=== PATIENT | female | born 1990 | race Caucasian/White ===

== ENCOUNTER → 2018-02-01 | Outpatient (CLI) | payer BC | LOC: COL.LAB 09:20 | DX: N97.0 Female infertility associated with anovulation (principal) ==

== ENCOUNTER → 2018-10-01 | Outpatient (CLI) | payer OTHER | LOC: COL.RAD 12:39 | DX: R31.0 Gross hematuria (principal) ==

== ENCOUNTER 2018-12-03 09:53 | Inpatient (IN) | payer OTHER ==
[2018-12-03] VITALS (18 sets, daily range): BP systolic 134–161; BP diastolic 86–107; PULSE 79–98; TEMP 97.6–97.9
[~2018-12-03] VITALS: Ht 162.6 cm; Wt 70.9 kg
--- NOTE | 2018-12-03 10:00 | NUR ---
Pt arrives on unit ambulatory with spouse for primary . Changed into clean gown. Denies regular ctx, vaginal bleeding, and LOF. Reports GFM. EFM and toco applied. BP elevated. Dr. Harmon notified. Orders for CMP. Notified of results. No new orders. IV started in LH. Labs drawn. LR infusing. Admission assessment completed. Consents signed. Skin prep performed. Pt updated on POC. Safety reviewed. No questions or concerns at this time. Bed locked in low position. Call light within reach.
[2018-12-03] MEDS ORDERED: PRENATAL MVI (10:14)
[2018-12-03] MEDS ORDERED: ASPIRIN 81M81 MG/TA2 PO (10:15)
[2018-12-03] MEDS ORDERED: VENTOLIN0.09 MG IH (10:15)
[2018-12-03] MEDS ORDERED: PROCARDIA XL 6060 MG PO (10:15)
[2018-12-03] MEDS ORDERED: FOLIC ACID 11 MG/TA1 PO (10:16)
[2018-12-03 10:48] LABS: BASO % 0.3 % (0.0-2.0); EOS # 0.2 (0.0-0.7); EOS % 1.9 % (0-4.0); GRAN # 8.4 (1.4-6.5); GRAN % 71.2 % (42.2-75.2); HEMATOCRIT 38.1 % (37.0-47.0); HEMOGLOBIN 13.6 g/dl (12.5-16.0); LYMPH # 2.2 (1.2-3.4); LYMPH % 18.8 % (20.0-51.0); MEAN CELL VOLUME 85 fl (80.0-100.0); MEAN CORPUSCULAR HEMOGLOBIN 30 pg (27.0-31.0); MEAN CORPUSCULAR HGB CONC 36 g/dl (33.0-37.0); MEAN PLATELET VOLUME 11.9 fl (7.4-10.4); MONO # 0.9 (0.1-0.6); MONO % 7.3 % (1.7-9.3); PLATELET COUNT 249 K/mm3 (130-400); RED BLOOD COUNT 4.49 M/mm3 (4.10-5.30); REDCELL DISTRIBUTION WIDTH-CV 12.9 % (11.5-14.5)
[2018-12-03 11:01] LABS: ALBUMIN 3.5 gm/dL (3.5-5.0); BILIRUBIN,TOTAL 0.3 mg/dL (0.0-1.0); CALCIUM 8.5 mg/dL (8.4-10.2); CREATININE, serum 0.61 (0.52-1.25); POTASSIUM 3.7 mmol/L (3.4-5.0); TOTAL PROTEIN 6.5 gm/dL (6.4-8.2)
[2018-12-04 04:30] VITALS: BP 131/91; PULSE 90; TEMP 97.8
[2018-12-04 07:06] VITALS: BP 144/89; PULSE 76; TEMP 98.1
--- NOTE | 2018-12-04 11:45 | NUR ---
Initial visit; Parents resting, Shut Off Worker left card of congratulations for the of their son and information regarding the availability of spiritual care at [place].
[2018-12-04 15:36] VITALS: BP 136/89; PULSE 78; TEMP 98.1
[2018-12-04 19:33] VITALS: BP 149/101; PULSE 97; TEMP 97.7
[2018-12-04 21:30] VITALS: BP 135/92
[2018-12-05 07:45] VITALS: BP 144/82; PULSE 95; TEMP 97.7
[2018-12-05] MEDS ORDERED: MOTRIN 800800 MG/TAB PO (08:51)
[2018-12-05] MEDS ORDERED: PERCOCET 325 MG1 TA2 PO (08:51)
[2018-12-05 15:42] VITALS: BP 144/83; PULSE 86; TEMP 97.6
[2018-12-05 21:00] VITALS: BP 129/87; PULSE 66; TEMP 98.8
[2018-12-06 09:06] VITALS: BP 142/96; PULSE 92; TEMP 97.7
[2018-12-06 12:25] VITALS: BP 146/96; PULSE 96
[2018-12-06 16:15] VITALS: BP 139/89; PULSE 100; TEMP 98.4
[2018-12-06 20:30] VITALS: BP 141/98; PULSE 107; TEMP 98.2
[2018-12-07] MEDS ORDERED: TRANDATE 100MG100 MG PO (08:53)
[2018-12-07 08:55] VITALS: BP 133/86; PULSE 98; TEMP 98.4
== END 2018-12-07 13:00 | disposition home or self-care (01) | DRG 787 ==
LOC: OB 09:53
PROVIDERS: ADMIT Obstetrics & Gynecology
PROC: 10D00Z1 Extraction of Products of Conception, Low, Open Approach (ICD-10-PCS; principal; 2018-12-03)
DX: O32.1XX0 Maternal care for breech presentation, not applicable or unspecified (principal); E72.12 Methylenetetrahydrofolate reductase deficiency; O36.5930 Maternal care for other known or suspected poor fetal growth, third trimester, not applicable or unspecified; O99.52 Diseases of the respiratory system complicating childbirth; O13.4 Gestational [pregnancy-induced] hypertension without significant proteinuria, complicating childbirth; J45.909 Unspecified asthma, uncomplicated; O99.284 Endocrine, nutritional and metabolic diseases complicating childbirth; O34.03 Maternal care for unspecified congenital malformation of uterus, third trimester; O75.89 Other specified complications of labor and delivery; R12 Heartburn; Z3A.37 37 weeks gestation of pregnancy; Z37.0 Single live birth; Q51.3 Bicornate uterus
CPT/HCPCS: J0171; J0690; J1885; J2370; J2405; J2590; J3010; J7120

== ENCOUNTER 2023-09-11 10:00 | Inpatient (IN) | payer OTHER ==
[~2023-09-11] VITALS: Ht 162.7 cm; Wt 78.2 kg
[2023-09-11] VITALS (21 sets, daily range): BP systolic 135–173; BP diastolic 89–123; PULSE 70–99; TEMP 97.7–98.2
[~2023-09-11 10:00] MED LIST: ASPIRIN 81M81 MG/TA2 PO; FOLIC ACID 11 MG/TA1 PO; LR 1,000 ML IV SCH; MOTRIN 800800 MG/TAB PO; Ondansetron 4 MG/2 ML VIAL IV SCH; PERCOCET 325 MG1 TA2 PO; PRENATAL MVI; PROCARDIA XL 6060 MG PO; TRANDATE 100MG100 MG PO; VENTOLIN0.09 MG IH
--- NOTE | 2023-09-11 10:15 | NUR ---
PATIENT ON UNIT AND AMBULATING TO ROOM. PATIENT DENIES CTX. PATIENT DENIES LEAKING OF FLUID OR BLEEDING. PATIENT REPORTS NORMAL MOVEMENT. EFM AND TOCO INTIATIED. SPO2 INITIATIED.
[2023-09-11] MEDS ORDERED: LR 1,000 ML IV SCH (11:00)
[2023-09-11] MEDS ORDERED: NS 10 ML IV ONE (11:09)
[2023-09-11] MEDS ORDERED: Ondansetron 4 MG/2 ML VIAL ONE (11:09)
[2023-09-11] MEDS ORDERED: dexAMETHasone 10 MG/ML VIAL ONE (11:09)
[2023-09-11] MEDS ORDERED: Oxytocin 10 UNITS/ML VIAL ONE (11:09)
[2023-09-11] MEDS ORDERED: Ketorolac 30 MG/ML VIAL ONE (11:09)
[2023-09-11 11:16] LABS: BASO % 0.2 % (0.0-2.0); EOS # 0.1 K/mm3 (0.0-0.7); EOS % 1.1 % (0.0-4.0); GRAN # 7.8 K/mm3 (1.4-6.5); GRAN % 78.4 % (42.2-75.2); HEMATOCRIT 39.1 % (37.0-47.0); HEMOGLOBIN 13.4 g/dl (12.5-16.0); LYMPH # 1.3 K/mm3 (1.2-3.4); LYMPH % 12.7 % (20.0-51.0); MEAN CELL VOLUME 82 fl (80.0-100.0); MEAN CORPUSCULAR HEMOGLOBIN 28 pg (27-31); MEAN CORPUSCULAR HGB CONC 34 g/dl (33.0-37.0); MEAN PLATELET VOLUME 12.6 fl (7.4-10.4); MONO # 0.7 K/mm3 (0.1-0.6); MONO % 7.2 % (1.7-9.3); PLATELET COUNT 200 K/mm3 (130-400); RED BLOOD COUNT 4.79 M/mm3 (4.10-5.30); REDCELL DISTRIBUTION WIDTH-CV 15.1 % (11.5-14.5)
[2023-09-11] MEDS ORDERED: NORMODYNE200 MG PO (11:17)
[2023-09-11] MEDS ORDERED: NATURAL IRON65 MG (11:18)
--- NOTE | 2023-09-11 11:35 | NUR ---
PATIENT AMBULATING BACK TO SECTION SUITE.
[2023-09-11] MEDS ORDERED: LR 1,000 ML IV ONE ×2 (12:08→12:23)
--- NOTE | 2023-09-11 12:39 | NUR ---
PROVIDER NOTIFIED OF MATERNAL BLOOD PRESSURE ELEVATION. PROVIDER WISHED TO CONTINUE WITH CURRENTLY PRESCRIBED LABATELOL 200 MG BID AND STATES THAT PATIENT CAN TAKE OWN MEDICATIONS SHE BROUGHT WITH HER FROM HOME.
--- NOTE | 2023-09-11 12:39 | NUR ---
MATERNAL BLOOD PRESSURE ELEVATED. ANESTHESIA WELL NOTIFIED. ORDERS GIVEN BY TO CONTINUE CURRENT THERAPY WHICH IS LABATELOL 200MG BID. ORDERS GIVEN TO ALLOW PATIENT TO TAKE LABETALOL BROUGHT FROM HOME. PATIENT IS NONSYMPTOMATIC AT THIS TIME.
[2023-09-11] MEDS ORDERED: Magnes Hydrox (MOM) 80 MG/ML 30 ML CUP PO PRN (12:45)
[2023-09-11] MEDS ORDERED: Loratadine 10 MG TAB PO PRN (12:45)
--- NOTE | 2023-09-11 12:45 | NUR ---
MATERNAL BLOOD PRESSURE ELEVATED. ANESTHESIA WELL NOTIFIED. HTN WAS A COMPLICATION AND PATIENT WAS ALREADY TAKING LABATELOL. WISHES TO CONTINUE WITH CURRENT LABETALOL THERAPY WHICH IS LABATELOL 200MG BID. PATIENT IS NO SYMPTOMATIC AT THIS TIME AND IS IN AGREEANCCE WITH PLAN OF CARE
[2023-09-11] MEDS ORDERED: Measles/Mumps/Rubella Virus Vaccine Live w Diluent 0.5 ML VIAL SQ SCH (14:15)
[2023-09-11] MEDS ORDERED: Naloxone 0.4 MG/ML VIAL IV PRN (14:15)
[2023-09-11] MEDS ORDERED: Ondansetron 4 MG/2 ML VIAL IV PRN (14:15)
[2023-09-11] MEDS ORDERED: Morphine 4 MG/ML VIAL IV PRN (14:15)
[2023-09-11] MEDS ORDERED: LR 1,000 ML IV PRN (14:15)
[2023-09-11] MEDS ORDERED: oxyCODONE/Acetaminophen 5-325 MG TAB PO PRN (14:15)
[2023-09-11] MEDS ORDERED: Sennosides/Docusate 8.6-50 MG TAB PO SCH (17:00)
--- NOTE | 2023-09-11 17:00 | NUR ---
NOTIFIED OF MATERNAL BLOOD PRESSURE ELEVATION THROUGHOUT RECOVERY. PROVIDER NOTIFIED THAT PATIENT HAS BEEN NONSYMPTOMATIC AND BLOOD PRESSURES HAD IMPROVED SLIGHTLY AT THE END OF RECOVERY. BLODD PRESSURES PRE-OP, IN PACU AND IN RECOVERY REVIEWED WITH PROVIDER. PROVIDER NOTIFIED THAT HAD GIVEN ORDERS TO CONTINUE LABETALOL 200 MG BID IN PACU. PROVIDER NOTIFIED THAT HTN WAS A COMPLICATION. ORDERS GIVEN FOR TO INCREASE LABATELOL TO 200 MG THREE TIMES DAILY. PROVIDER IS OKAY WITH 'S PREVIOUS ORDER TO ALLOW PATIENT TO USE LABATELOL BROUGHT FROM HOME.
[2023-09-11] MEDS ORDERED: Ibuprofen 800 MG TAB PO SCH (18:31)
--- NOTE | 2023-09-11 20:10 | NUR ---
THIS RN TO PATIENT'S ROOM AT 1900 FOR VITALS, ASSESSMENT, AND POC UPDATE. DISCUSSED AND EDUCATED PATIENT ON THE ORDERED LABETOLOL INCREASE TO TID. PATIENT REPORTS SHE DID NOT TAKE HER SECOND DOSE OF LABETOLOL THIS AFTERNOON AND HAD NOT YET TAKEN HER EVENING DOSE. THIS RN EDUCATED PATIENT ON IMPORTANCE OF TAKING PRESCRIBED DOSING AND HAD PATIENT TAKE HER EVENING DOSE OF LABETOLOL AT 1900. BP AT 1900 WAS 173/96. PATIENT WAS SUPINE IN BED AT THIS TIME. BP WAS RE-TAKEN AT 1999 1 HOUR AFTER LABETOLOL ADMINISTRATION. BP AT THIS TIME WAS 158/93. PATIENT SUPINE IN BED AT THIS TIME. PATIENT ASYMPTOMATIC TO ELEVATED BP. DR. DURBIN NOTIFIED AT 2009. REPORTED TO THE PROVIDER THAT THE PATIENT NEVER TOOK THE AFTERNOON 2ND DOSE OF LABETOLOL ORDERED. DISCUSSED THAT PATIENT TOOK THE EVENING DOSE AT 1900. REPORTED PATIENT'S BP AT [address] DURBIN GAVE THE FOLLOWING ORDERS: 1. ADMINISTER THE 3RD DOSE OF LABETOLOL 200 MG PO ONCE NOW. [address] PL[address] AND ORDER FOR LABETOLOL PO 200 MG TID IN THE COMPUTER FOR STAFF TO ADMINISTER TO PATIENT. PATIENT IS TO NO LONGER TAKE HER OWN HOME DOSE. ORDERS PLACED PER PROVIDER.
[2023-09-11] MEDS ORDERED: traZODone 50 MG TAB PO PRN (21:00)
[2023-09-12 03:30] VITALS: BP 155/88; PULSE 88; TEMP 98.2
[2023-09-12 08:30] VITALS: BP 166/105; PULSE 88; TEMP 98
--- NOTE | 2023-09-12 08:56 | NUR ---
MORNING BP ELEVATED. AM LABETALOL GIVEN AND WILL RECHECK IN 1 HOUR.
[2023-09-12 09:40] VITALS: BP 137/91
--- NOTE | 2023-09-12 09:40 | NUR ---
PATIENT'S BP 1 HOUR AFTER LABETALOL 137/91.
--- NOTE | 2023-09-12 10:14 | NUR ---
Initial visit; Parents thanked State Trooper for offering congratulations and God's blessings for the of their daughter. State Trooper thanked family for choosing [facility]. They stated that their experience here has been a very good one.
[2023-09-12 14:05] VITALS: BP 137/91
[2023-09-12 17:00] VITALS: BP 133/90; PULSE 92; TEMP 98.2
--- NOTE | 2023-09-12 18:30 | NUR ---
Report recieved at this time. Pumping at this time - reports "I do not feel like my baby is getting much and she is not eating well." Reviewed POC, reassured that is learning to breastfeed and that can take time, encouarged that although she is not getting "much" with pumping is proven to be better at expressing colostrum. Encouraged to call for assistance with next breastfeed. POC reviewed and whiteboard updated. D/C process discussed. certificate turned in. Patient reporting pain with ambulation; encouraged that ambulation is an important part of healing, pain management, and reducation of risk for blood clots. Patient verbalized understanding.
[2023-09-12 19:15] VITALS: BP 136/87; PULSE 90; TEMP 98
[2023-09-13 07:16] VITALS: BP 141/90; PULSE 96; TEMP 98.3
--- NOTE | 2023-09-13 14:15 | NUR ---
PT AND PT SPOUSE VERBALLY UNDERSTANDING OF DISCHARGE INSTRUCTIONS, PT SIGNED DISCHARGE PAPERWORK. PT AND VS STABLE AND DOCTORS ORDERS TO DISCHARGE ACKNOWLEDGED. CHECKED SAFELY IN CAR SEAT CARRIER PER THIS RN, PT, INFANT AND PT SPOUSE WALKED SAFELY OUT OF UNIT AND HOSPITAL TO GO HOME.
--- NOTE | 2023-09-13 14:46 | NUR ---
REPORT RECEIVED FROM TOI. PT COMFORTABLE AND ASLEEP AND NOT REPORTING ANY PAIN CURRENTLY.
== END 2023-09-13 14:15 | disposition home or self-care (01) | DRG 787 ==
LOC: OB 10:00
PROVIDERS: ADMIT Obstetrics & Gynecology
PROC: 10D00Z1 Extraction of Products of Conception, Low, Open Approach (ICD-10-PCS; principal; 2023-09-11)
DX: O34.211 Maternal care for low transverse scar from previous cesarean delivery (principal); O10.92 Unspecified pre-existing hypertension complicating childbirth; Z3A.39 39 weeks gestation of pregnancy; Z37.1 Single stillbirth; O99.513 Diseases of the respiratory system complicating pregnancy, third trimester; J45.909 Unspecified asthma, uncomplicated
CPT/HCPCS: J0665; J0690; J1100; J1885; J2270; J2405; J2590; J7120